=== PATIENT | female | born 1980 | race Caucasian/White ===

== ENCOUNTER 2016-09-18 04:23 | Emergency (ER) | payer MEDICAID ==
[2016-09-18] MEDS ORDERED: KETOROLAC 15 MG/1 ML SDV IVP ONE (04:51)
--- NOTE | 2016-09-18 04:56 | EDPHY ---
H & P Stated Complaint: "I think I have an ovarian cyst". Pt c/o of RUQ/RLQ 04/01 pain Time Seen by Provider: 09/18/16 04:43 HPI/ROS: HPI The patient presents with right-sided lower abdominal pain which began at about 3:45 a.m. this morning and awoke her from sleep. The pain is described as stabbing, severe, constant without any radiation. It is associated with nausea. After she developed the pain she walked to the bathroom to urinate, was able to urinate normally, however upon standing from the toilet she became lightheaded and lost consciousness. Her roommate heard her fall and came to her assistance. She now denies any dizziness. She says her symptoms feel similar to when she was in the emergency room several months ago and diagnosed with a hemorrhagic ovarian cyst on the right. She is currently on oral contraceptives and has not had any menstrual period for several months. REVIEW OF SYSTEMS Constitutional: No fever, no chills. Eyes: No discharge. ENT: No sore throat. Cardiovascular: No chest pain, no palpitations. Respiratory: No cough, no shortness of breath. Gastrointestinal: +abdominal pain, no vomiting. Genitourinary: No hematuria. Musculoskeletal: No back pain. Skin: No rashes. Neurological: No headache. PMHx: History of right-sided ovarian cyst Soc Hx: Housed PHYSICAL General Appearance: Alert, uncomfortable appearing Eyes: Pupils equal and round no pallor or injection ENT, Mouth: Mucous membranes moist Respiratory: There are no retractions, lungs are clear to auscultation Cardiovascular: Regular rate and rhythm Gastrointestinal: Abdomen is soft with tenderness in the right lower quadrant and mild tenderness in the right upper quadrant Neurological: A&O, moves all extremities Skin: Warm and dry, no rashes Musculoskeletal: Neck is supple non tender Extremities: symmetrical, full range of motion Psychiatric: Patient is oriented X 3, there is no agitation Source: Patient Exam Limitations: No limitations - Personal History LMP (Females 10-55): Over 28 Days Ago Current Tetanus Diphtheria and Acellular Pertussis (TDAP): Yes - Medical/Surgical History Hx Asthma: No Hx Chronic Respiratory Disease: No Hx Diabetes: No Hx Cardiac Disease: No Hx Renal Disease: No Hx Cirrhosis: No Hx Alcoholism: No Hx HIV/AIDS: No Hx Splenectomy or Spleen Trauma: No Other PMH: depression. chronic abd and "ovulation" pain - Social History Smoking Status: Never smoked Constitutional: Initial Vital Signs Heart Rate 85 09/18/16 04:29 Respiratory Rate 20 09/18/16 04:29 Blood Pressure 95/65 L 09/18/16 04:29 O2 Sat (%) 100 09/18/16 04:29 O2 Delivery Mode Room Air Allergies/Adverse Reactions: bacitracin [From Polysporin] Allergy (Verified 09/18/16 04:43) fluoxetine HCl [From Prozac] Allergy (Verified 09/18/16 04:43) metoclopramide HCl [From Reglan] Allergy (Verified 09/18/16 04:43) polymyxin B sulfate [From Polysporin] Allergy (Verified 09/18/16 04:43) Home Medications: Medication Instructions Recorded Escitalopram Oxalate [Lexapro] 10 mg PO 05/28/16 Control Pill 07/14/16 Medical Decision Making - Diagnostics Imaging: Pelvic ultrasound demonstrates 4 cm right-sided ovarian cyst without any evidence of torsion, discussed with Dr. Ferreira of Radiology. ED Course/Re-evaluation: 4:45 a.m.- Initial patient encounter. Plan for pain medication, basic labs, ultrasound. 6:00 a.m.- Patient's basic labs were normal. Ultrasound demonstrated a right-sided ovarian cyst measuring 4 cm at greatest diameter with small amount of free fluid with no evidence of torsion. This was discussed with her. She is feeling much much better after receiving pain medication. She will be discharged home with follow up with [facility]. That is where her primary care doctor is, I have encouraged her to see an OBGYN there for further care. Differential Diagnosis: This is a 36-year-old female with prior history of right-sided hemorrhagic ovarian cyst measuring 5 cm who presents from home with acute onset of right- sided lower abdominal pain associated with nausea and a syncopal event. Differential diagnosis includes ectopic , ruptured ovarian cyst, ovarian torsion, less likely appendicitis. - Data Points Laboratory Results: Laboratory Results 09/18/16 05:00 09/18/16 05:00 09/18/16 09/18/16 05:20 05:00 WBC 6.36 10^3/uL (3.80-9.50) RBC 5.13 10^6/uL (4.18-5.33) Hgb 14.9 g/dL (12.6-16.3) Hct 42.7 % (38.0-47.0) MCV 83.2 fL (81.5-99.8) MCH 29.0 pg (27.9-34.1) MCHC 34.9 g/dL (32.4-36.7) RDW 12.3 % (11.5-15.2) Plt Count 271 10^3/uL (150-400) MPV 10.1 fL (8.7-11.7) Neut % (Auto) 44.9 % (39.3-74.2) Lymph % (Auto) 46.9 H % (15.0-45.0) Glenn % (Auto) 6.1 % (4.5-13.0) Eos % (Auto) 1.1 % (0.6-7.6) Baso % (Auto) 0.8 % (0.3-1.7) Nucleat RBC Rel Count 0.0 % (0.0-0.2) Absolute Neuts (auto) 2.86 10^3/uL (1.70-6.50) Absolute Lymphs (auto) 2.98 10^3/uL (1.00-3.00) Absolute Monos (auto) 0.39 10^3/uL (0.30-0.80) Absolute Eos (auto) 0.07 10^3/uL (0.03-0.40) Absolute Basos (auto) 0.05 10^3/uL (0.02-0.10) Absolute Nucleated RBC 0.00 10^3/uL (0-0.01) Immature Gran % 0.2 % (0.0-1.1) Immature Gran # 0.01 10^3/uL (0.00-0.10) Sodium 140 mEq/L (134-144) Potassium 3.7 mEq/L (3.5-5.2) Chloride 106 mEq/L (97-110) Carbon Dioxide 25 mEq/l (22-31) Anion Gap 9 mEq/L (8-16) BUN 8 mg/dL (7-23) Creatinine 0.7 mg/dL (0.6-1.0) Estimated GFR > 60 Glucose 146 H mg/dL (70-100) Calcium 9.5 mg/dL (8.5-10.4) Total Bilirubin 0.5 mg/dL (0.1-1.4) AST 19 IU/L (14-46) ALT 23 IU/L (9-52) Alkaline Phosphatase 59 IU/L (38-126) Total Protein 7.3 g/dL (6.3-8.2) Albumin 4.0 g/dL (3.5-5.0) Beta HCG, Qual NEGATIVE Urine Color YELLOW Urine Appearance MODERATELY TURBID Urine pH 7.0 (5.0-7.5) Ur Specific Blaine 1.015 (1.002-1.030) Urine Protein NEGATIVE (NEGATIVE) Urine Ketones TRACE H (NEGATIVE) Urine Blood 1+ H (NEGATIVE) Urine Nitrate NEGATIVE (NEGATIVE) Urine Bilirubin NEGATIVE (NEGATIVE) Urine Urobilinogen NEGATIVE EU (0.2-1.0) Ur Leukocyte Esterase NEGATIVE (NEGATIVE) Urine RBC 3-5 H /hpf (0-3) Urine WBC 3-5 H /hpf (0-3) Ur Epithelial Cells TRACE /lpf (NONE-1+) Amorphous Sediment PRESENT /hpf (NONE-1+) Urine Bacteria TRACE H /hpf (NONE SEEN) Hyaline Casts 1-5 /lpf (0-1) Urine Mucus 1+ /lpf (NONE-1+) Ur Culture Indicated? NOT INDICATED (NI) Urine Glucose NEGATIVE (NEGATIVE) Medications Given: Discontinued Medications Ketorolac Tromethamine (Toradol) 15 mg IVP EDNOW ONE Stop: 09/18/16 04:52 Last Admin: 09/18/16 05:07 Dose: 15 mg Morphine Sulfate (Morphine) 4 mg IVP EDNOW ONE Stop: 09/18/16 04:52 Last Admin: 09/18/16 05:09 Dose: 4 mg Departure - Departure Disposition: Home, Routine, Self-Care Clinical Impression: Right ovarian cyst Condition: Good Instructions: Ovarian Cyst (ED) Additional Instructions: Please take ibuprofen 600 mg every 6 hours as needed for pain. You should call the [facility] and ask specifically for an appointment with a an OBGYN doctor. Please return if your worse in any way. Referrals: [facility] [Outside] - As per Instructions
[2016-09-18 05:11] VITALS: RESP 16
[2016-09-18 05:14] LABS: % IMMATURE GRANULYOCYTES 0.2 % (0.0-1.1); ABSOLUTE IMMATURE GRANULOCYTES 0.01 10^3/uL (0.00-0.10); ADD DIFF? NO; ADD MORPH? NO; ADD SCAN? NO; ATYPICAL LYMPHOCYTE FLAG 10 (0-99); FRAGMENT RBC FLAG 0 (0-99); HEMATOCRIT 42.7 % (38.0-47.0); HEMOGLOBIN 14.9 g/dL (12.6-16.3); LEFT SHIFT FLG 0 (0-99); LIPEMIA HEMOLYSIS FLAG 90 (0-99); MEAN CELL HEMOGLOBIN CONCENTR. 34.9 g/dL (32.4-36.7); MEAN CELL VOLUME 83.2 fL (81.5-99.8); MEAN PLATELET VOLUME 10.1 fL (8.7-11.7); PLATELET CLUMPS FLAG 0 (0-99); PLATELET COUNT 271 10^3/uL (150-400); RED BLOOD CELL COUNT 5.13 10^6/uL (4.18-5.33); RED CELL DISTRIBUTION WIDTH 12.3 % (11.5-15.2)
[2016-09-18 05:25] LABS: ALANINE AMINOTRANSFERASE 23 IU/L (9-52); ALKALINE PHOSPHATASE 59 IU/L (38-126); ANION GAP 9 mEq/L (8-16); ASPARTATE AMINOTRANSFERASE 19 IU/L (14-46); BILIRUBIN,TOTAL 0.5 mg/dL (0.1-1.4); CALCIUM 9.5 mg/dL (8.5-10.4); CARBON DIOXIDE 25 mEq/l (22-31); CHLORIDE 106 mEq/L (97-110); CREATININE 0.7 mg/dL (0.6-1.0); GLOMERULAR FILTRATION RATE > 60; GLUCOSE 146 mg/dL (70-100); POTASSIUM 3.7 mEq/L (3.5-5.2); SODIUM 140 mEq/L (134-144); TOTAL PROTEIN 7.3 g/dL (6.3-8.2)
[2016-09-18 05:44] LABS: COLOR YELLOW; LEUKOCYTE ESTERASE,URINE NEGATIVE (NEGATIVE); NITRITE,URINE NEGATIVE (NEGATIVE)
[2016-09-18 05:54] LABS: AMORPHOUS PRESENT /hpf (NONE-1+); BACTERIA TRACE /hpf (NONE SEEN); MUCUS 1+ /lpf (NONE-1+)
[2016-09-18 06:24] VITALS: BP 107/65; PULSE 70; TEMP 98.4; O2SAT 98
--- NOTE | 2016-09-18 09:53 | US ---
Pelvic Ultrasound (Transabdominal and Endovaginal) with color flow and spectral Doppler History: Increasing right lower quadrant pain. Previous history of complex right adnexal cyst. Comparison: July 14, 2016 Findings: The pelvis was first examined through a nondistended bladder from TRANSABDOMINAL approach. UTERUS: Size: 7.4 x 3.1 x 4.8 cm in longitudinal, AP, and transverse projections. Orientation: Anteflexed. Uterine Masses: None seen. Endometrium: Not well delineated. ADNEXA: Complex cyst suspected right adnexa. Left ovary is not well delineated. The pelvis was then evaluated from ENDOVAGINAL approach after the bladder was emptied to better evalu ate the uterus and adnexa. UTERUS: Orientation: Anteverted. Masses: None. Endometrium: Normal measuring 3 mm in thickness. ADNEXA: There is homogeneous slightly hypoechoic complex cyst once again seen associated with the rig ht adnexa that measures free 0.5 x 2.6 x 3.7 cm (previously 5 x 3.4 x 3.1 cm). There is no internal c olor flow enhancement of this complex cyst. The left ovary remains normal in appearance with small fo llicles. Right ovary size: 4.3 x 3.1 x 4.6 cm Left ovary size: 0.9 x 2.3 x 1.6 cm Color flow and spectral Doppler: Normal color flow imaging with normal Doppler waveform bilaterally. Free fluid: Small amount of physiologic free fluid is seen in the pelvis. Other findings: None. Impression: 1. Complex hemorrhagic cyst versus endometrioma associated with the right ovary that has decreased in size since the prior study. 2. Normal color flow Doppler pattern each ovary. 3. Normal-appearing uterus and left ovary. The study was performed as an emergency on-call case and discussed by telephone with Dr. Trisha davenport at 0616 hrs. The final interpretation is concordant with the original communication.
== END 2016-09-18 06:51 | disposition home or self-care (01) ==
DX: N83.201 Unspecified ovarian cyst, right side (principal)
CPT/HCPCS: 96374; J1885

== ENCOUNTER → 2017-02-12 | Outpatient (CLI) | payer MEDICAID | LOC: FIMAGING 12:30 | PROVIDERS: ATTEND Family Medicine | DX: N83.201 Unspecified ovarian cyst, right side (principal) ==

== ENCOUNTER → 2017-05-19 | Outpatient (CLI) | payer OTHER | LOC: FIMAGING 14:03 | PROVIDERS: ATTEND Obstetrics & Gynecology | DX: N83.201 Unspecified ovarian cyst, right side (principal) ==